=== PATIENT | female | born 1985 | race Caucasian/White ===

== ENCOUNTER 2017-01-20 12:03 | Emergency (ER) | payer SELFPAY ==
[2017-01-20 12:16] VITALS: O2SAT 100
--- NOTE | 2017-01-20 12:31 | C.PDOC ---
History Of Present Illness A 31 year old female with a Hx of anxiety, presents to the ER c/o palpitation and anxiety after taking 2 pills of Zoloft today. Patient reports she started feeling anxious prior to arrival and started taking her anxiety medication. Patient denies chest pain, fever, chills, trauma, vomiting, suicidal or homicidal ideation, or any other complaints Time Seen by Provider: 01/20/17 12:19 Chief Complaint (Nursing): Medical Clearance History Per: Patient History/Exam Limitations: no limitations Onset/Duration Of Symptoms: Hrs Current Symptoms Are (Timing): Still Present Associated Symptoms: denies: Chest Pain Quality Of Symptoms: Rapid Heart Rate Severity: Mild Recent travel outside of the [place]: No Additional History Per: Patient Past Medical History Reviewed: Historical Data, Nursing Documentation, Vital Signs Vital Signs: Last Vital Signs Temp 97.4 F L 01/20/17 13:46 Pulse 92 H 01/20/17 13:46 Resp 18 01/20/17 13:46 BP 136/81 01/20/17 13:46 Pulse Ox 100 01/20/17 14:03 - Medical History PMH: Anxiety Denies: Chronic Kidney Disease - [facility] Procedures NEBULIZER THERAPY (06/28/14) Family History: States: Diabetes, Hypertension - Social History Hx Alcohol Use: No Hx Substance Use: No - Immunization History Hx Tetanus Toxoid Vaccination: Yes Hx Influenza Vaccination: Yes Hx Pneumococcal Vaccination: Yes Review Of Systems Except As Marked, All Systems Reviewed And Found Negative. Constitutional: Negative for: Fever, Chills, Other (Trauma) Cardiovascular: Positive for: Palpitations Gastrointestinal: Negative for: Vomiting Psych: Positive for: Anxiety. Negative for: Suicidal ideation Physical Exam - Physical Exam Appears: Non-toxic, No Acute Distress, Other (Appears anxious) Skin: Warm, Dry Head: Atraumatic, Normacephalic Eye(s): bilateral: Normal Inspection, PERRL Cardiovascular: Rhythm Regular (Tachycardic), No Murmur Respiratory: Normal Breath Sounds, No Rales, No Rhonchi, No Wheezing Neurological/Psych: Oriented x3, Normal Speech, No Other (No focal deficit) ED Course And Treatment - Laboratory Results Result Diagrams: 01/20/17 12:59 01/20/17 12:59 ECG: Interpreted By Me, Viewed By Me ECG Rhythm: Sinus Rhythm, Sinus Tachycardia (100) ECG Interpretation: Abnormal Interpretation Of ECG: qtc 490 Rate From EC O2 Sat by Pulse Oximetry: 100 (RA) Pulse Ox Interpretation: Normal Progress - Re-Evaluation Re-evaluation Note: 01/20/17 14:01 EXAM UNCH PRIOR. VSS. PS HAD 2 PANIC ATTACKS SINCE PRIOR EVAL. AGAIN OFFERED XANAX, PT AGREES W PLAN. DC FU PMD 01/20/17 14:19 EKG #2: NSR@ 75 QTC 457 - Data Reviewed Data Reviewed: Lab, Diagnostic imaging, EKG, Old records - Continuity of Care Discussed patient case with:: Patient, Family-HIPPA compliant Medical Decision Making Medical Decision Making: Impression: 31 y/o c/o palpation and anxiety prior to arrival. Plans: -EKG -IV fluids -Reassess and disposition Disposition Counseled Patient/Family Regarding: Studies Performed, Diagnosis, Need For Followup - Disposition Referrals: YOUR,PMD [Other] Disposition: HOME/ ROUTINE Disposition Time: 14:02 Condition: IMPROVED Instructions: Palpitations (ED), Panic Attack (ED) - Clinical Impression Clinical Impression: Palpitations, Panic attack - Scribe Statement The provider has reviewed the documentation as recorded by the Scribe Nona preston All medical record entries made by the Scribe were at my direction and personally dictated by me. I have reviewed the chart and agree that the record accurately reflects my personal performance of the history, physical exam, medical decision making, and the department course for this patient. I have also personally directed, reviewed, and agree with the discharge instructions and disposition.
[2017-01-20 13:02] LABS: BASO # 0.2 K/uL (0.0-0.2); BASO % 2.9 % (0.0-2.0); EOS # 0.1 K/uL (0.0-0.7); HEMATOCRIT 38.6 % (34.0-47.0); LYMPH # 2.1 K/uL (1.0-4.3); LYMPH % 30.2 % (20.0-40.0); MEAN CELL VOLUME 86.1 fL (81.0-99.0); MEAN CORPUSCULAR HEMOGLOBIN 27.9 pg (27.0-31.0); MEAN CORPUSCULAR HGB CONC 32.4 g/dL (33.0-37.0); MONO # 0.4 K/uL (0.0-0.8); MONO % 5.3 % (0.0-10.0); NRBC % 0.1 % (0.0-2.0); RED CELL DISTRIBUTION WIDTH 14.8 % (11.5-14.5); WHITE BLOOD COUNT 6.9 K/uL (4.8-10.8)
[2017-01-20 13:10] LABS: CHLORIDE 104 mmol/L (98-107); POTASSIUM 3.8 mmol/L (3.6-5.2); SODIUM 142 mmol/L (132-148)
[2017-01-20 13:12] LABS: GFR AFRICAN-AMERICAN > 60
[2017-01-20 13:13] LABS: BLOOD UREA NITROGEN 8 mg/dL (7-17); CALCIUM 8.8 mg/dl (8.6-10.4); CARBON DIOXIDE 20 mmol/L (22-30); GLUCOSE,RANDOM 108 mg/dL (65-105)
--- NOTE | 2017-01-20 13:14 | RAD ---
HISTORY: Palpitations. COMPARISON: 07/02/2014. TECHNIQUE: Chest PA and lateral FINDINGS: LUNGS: No active pulmonary disease. PLEURA: No significant pleural effusion identified. No pneumothorax apparent. CARDIOVASCULAR: Normal. OSSEOUS STRUCTURES: No significant abnormalities. VISUALIZED UPPER ABDOMEN: Normal. OTHER FINDINGS: None. IMPRESSION: No active disease. No significant interval change compared to the prior examination(s).
[2017-01-20 13:47] VITALS: BP 136/81
[2017-01-20 14:20] VITALS: PULSE 72; RESP 14; TEMP 98.6
--- NOTE | 2017-01-23 07:43 | CARD ---
APPROVED REPORT EKG Measurement Heart [id number] <Conclusion> Poor data quality, interpretation may be adversely affected Normal sinus rhythm Normal ECG
--- NOTE | 2017-01-23 07:44 | CARD ---
APPROVED REPORT EKG Measurement Heart [id number] <Conclusion> Normal sinus rhythm Prolonged QT Abnormal ECG
== END 2017-01-20 14:20 | disposition home or self-care (01) ==
LOC: C.ER 12:03
DX: F41.0 Panic disorder [episodic paroxysmal anxiety] (principal); R00.2 Palpitations

== ENCOUNTER 2017-11-20 12:07 | Emergency (ER) | payer OTHER ==
[2017-11-20 12:14] VITALS: BP 131/83; PULSE 86; RESP 18; TEMP 98.2; O2SAT 100
--- NOTE | 2017-11-20 12:50 | C.PDOC ---
History Of Present Illness 32 yo female w/o significant PMHx come in for evaluation of Right head painful mass and Right neck painful swelling gradually developed for past few days. Pt sts, " had hair done week ago". Otherwise, pt denies fever, chills, known trauma or injury, dizziness, ear ache, sore throat, recent illness, weight loss , malaise, denies any other active complaints. Ambulate to ED for evaluation, not in any apparent distress. Time Seen by Provider: 11/20/17 12:32 Chief Complaint (Nursing): Abnormal Skin Integrity History Per: Patient Past Medical History Reviewed: Historical Data, Nursing Documentation, Vital Signs Vital Signs: Last Vital Signs Temp 98.2 F 11/20/17 12:12 Pulse 86 11/20/17 12:12 Resp 18 11/20/17 12:12 BP 131/83 11/20/17 12:12 Pulse Ox 100 11/20/17 13:03 - Medical History PMH: Anxiety Denies: Chronic Kidney Disease Surgical History: No Surg Hx - [facility] Procedures NEBULIZER THERAPY (06/28/14) Family History: States: Diabetes, Hypertension - Social History Hx Tobacco Use: Yes Hx Alcohol Use: No Hx Substance Use: No - Immunization History Hx Tetanus Toxoid Vaccination: Yes Hx Influenza Vaccination: Yes Hx Pneumococcal Vaccination: Yes Review Of Systems Except As Marked, All Systems Reviewed And Found Negative. Constitutional: Negative for: Fever, Chills, Weakness, Malaise, Weight loss Eyes: Negative for: Vision Change ENT: Negative for: Ear Pain, Ear Discharge, Nose Pain, Nose Discharge, Nose Congestion, Mouth Pain, Mouth Swelling, Throat Pain, Throat Swelling Respiratory: Negative for: Cough, Shortness of Breath Musculoskeletal: Positive for: Neck Pain Skin: Positive for: Lesions Neurological: Negative for: Weakness, Numbness, Altered Mental Status, Headache , Dizziness Physical Exam - Physical Exam Appears: Well, Non-toxic, No Acute Distress Skin: Normal Color, Warm, Dry Head: Atraumatic, Normacephalic, Other (Right temporal area small tender mass 1cm diameter, mild erythema, no flactulance.) Eye(s): bilateral: PERRL Ear(s): Bilateral: Normal Nose: No Flaring, No Discharge Oral Mucosa: Moist, No Drooling, No Trismus Tongue: Normal Appearing, No Lesions Lips: Normal Appearing, No Lesions Gingiva: Normal Appearing Throat: No Erythema, No Drooling Neck: Trachea Midline, No Midline Cervical Tenderness, No Paracervical Tenderness, No Step Off Deformity, Supple Lymphatic: Adenopathy (Right anterior cervical, mild tenderness, no erythema, no flactulance.) Respiratory: No Decreased Breath Sounds, No Accessory Muscle Use, No Stridor, No Wheezing Extremity: Normal ROM, No Deformity, No Swelling Neurological/Psych: Oriented x3, Normal Speech ED Course And Treatment O2 Sat by Pulse Oximetry: 100 Pulse Ox Interpretation: Normal Progress Note: On re-evaluation, pt is afebrile, hemodynamicalys table. NOn- toxic. PulsEOx 100% RA. Neck: (+) Right anterior cervical tender lymphodenopathy, no erythema, no flactulance. Supple, (-) meningeals ign. Head : (+) Right temporal scalp cyst , no flactulance. ENT: No acute findings. Lungs: CTA B/L, BS equal B/L. Pt advised on course of ds. ref. to F/U with PMD , ENT In 2-3 days for re-eavl. returbn to ED if any worsening or new changes. Disposition Counseled Patient/Family Regarding: Diagnosis, Need For Followup, Rx Given - Disposition Referrals: Dilan Esposito MD [Staff Provider] - Disposition: HOME/ ROUTINE Disposition Time: 12:51 Condition: STABLE Additional Instructions: Warm compresses to scalp Take medication as prescribed Follow up with PMD, ENT in 2-3 days for evaluation. return to ED if any worsening or new changes. Prescriptions: Doxycycline Hyclate [Doryx] 100 mg PO BID #14 cap Ibuprofen [Motrin Tab] 600 mg PO Q6 #20 tab Instructions: Epidermal Cyst, Soft Tissue Sarcoma, Adult (DC) Forms: [facility] (Malagasy) - Clinical Impression Clinical Impression: Scalp cyst, Lymphadenopathy
== END 2017-11-20 13:05 | disposition home or self-care (01) ==
LOC: C.ER 12:07
DX: L72.8 Other follicular cysts of the skin and subcutaneous tissue (principal); R59.1 Generalized enlarged lymph nodes

== ENCOUNTER 2018-10-31 19:10 | Emergency (ER) | payer MEDICAID, OTHER ==
[2018-10-31 19:11] VITALS: BMI 29.0
[2018-10-31] MEDS ORDERED: Folic Acid 1 MG, Thiamine 100 MG, Multivitamin (MVI) 10 ML in Dextrose 5% In Water 1,00... IV SCH (20:15)
--- NOTE | 2018-10-31 20:18 | C.PDOC ---
History Of Present Illness 33 year old female with Hx of ETOH abuse presents with palpitations and tremulousness x2 hours. She typically drinks 1 bottle of wine a day, last drink was two glasses of wine this morning but stopped because she wishes to quit, sym ptoms then began 2 hours ago. Patient feels anxiety and fear but does not know of what. Denies fever, chills, chest pain, SOB, trauma, or vomiting. PMD: Luke Nelson Time Seen by Provider: 10/31/18 19:52 Chief Complaint (Nursing): Palpitations History Per: Patient History/Exam Limitations: no limitations Onset/Duration Of Symptoms: Hrs Current Symptoms Are (Timing): Still Present Recent travel outside of the [place]: No Past Medical History Reviewed: Historical Data, Nursing Documentation, Vital Signs Vital Signs: Last Vital Signs Temp 98.2 F 10/31/18 19:17 Pulse 120 H 10/31/18 19:17 Resp 16 10/31/18 19:17 BP 125/87 10/31/18 19:17 Pulse Ox 100 10/31/18 19:17 - Medical History PMH: Anemia (as per pt 4 months ago hemglobin low, was on iron pills), Anxiety, Depression, Sleep Apnea (prior to surgery) Denies: Alzheimer's Disease, Arthritis, Asthma, Atrial Fibrillation, Bipolar Disorder, Bronchitis, CAD, Cardia Arrhythmia, CHF, COPD, Crohn's Disease, Dementia, Diabetes, Diverticulitis, Emphysema, Fractures, Gastritis, Gall Bladder Disease, Hepatitis, HIV, HTN, Hypercholesterolemia, Hyperthyroidism, Hypothyroidism, Kidney Stones, Migraine, Mitral Valve Prolapse, Multiple Sclerosis, Osteoporosis, Pancreatitis, Paranoia, Parkinson's Disease, Peripheral Edema, Pneumonia, Post Traumatic Stress Disorder, Pulmonary Embolism, Chronic Kidney Disease, Rheumatoid Arthritis, Schizophrenia, Seizures, Sickle Cell Disease, Sexually Transmitted Disease, TIA Surgical History: Denies: Appendectomy, CABG, Carotid Endarterectomy, Cholecystectomy, Coronary Stent, Pacemaker, Tonsillectomy - [facility] Procedures (06/23/18) INTRODUCTION OF SERUM/TOX/VACCINE INTO MUSCLE, PERC APPROACH (06/23/18) NEBULIZER THERAPY (06/28/14) Family History: States: Diabetes, Hypertension - Social History Hx Tobacco Use: Yes Hx Alcohol Use: Yes Hx Substance Use: No - Immunization History Hx Tetanus Toxoid Vaccination: Yes Hx Influenza Vaccination: Yes Hx Pneumococcal Vaccination: Yes Review Of Systems Except As Marked, All Systems Reviewed And Found Negative. Constitutional: Negative for: Fever Cardiovascular: Positive for: Palpitations. Negative for: Chest Pain Respiratory: Negative for: Shortness of Breath Neurological: Positive for: Other (Tremulousness) Physical Exam - Physical Exam Additional Physical Exam Comments: Constitutional: No acute distress. Head: Normocephalic. Atraumatic. Eyes: PERRL. EOMI. ENT: Moist mucous membranes. Neck: Supple. Cardiovascular: Tachycardic. Chest: No tenderness. Respiratory: Clear to auscultation bilaterally. GI: Soft. Nontender. Nondistended. Back: No CVA tenderness. Musculoskeletal: No tenderness or swelling of extremities. Skin: No rash. Neurologic: Tremor. Tongue fasciculation. ED Course And Treatment - Laboratory Results Result Diagrams: 10/31/18 20:25 10/31/18 20:25 O2 Sat by Pulse Oximetry: 100 Medical Decision Making Medical Decision Making: Tremors resolved. Tachycardia resolved. Called detox, no beds available. Patient feels comfortable to go home and continue to call detox for bed availability. I nstructed to return to ED for worsening tremor, dyspnea, pain, vomiting, or any other problem. Disposition - Disposition Disposition: HOME/ ROUTINE Disposition Time: 22:09 Condition: STABLE Instructions: Alcohol Withdrawal Forms: [facility] (Romanian) - Clinical Impression Clinical Impression: Alcohol withdrawal - Scribe Statement The provider has reviewed the documentation as recorded by the Scribe Jatinder Falcon All medical record entries made by the Scribe were at my direction and personally dictated by me. I have reviewed the chart and agree that the record accurately reflects my personal performance of the history, physical exam, [facility] decision making, and the department course for this patient. I have also personally directed, reviewed, and agree with the discharge instructions and disposition.
[2018-10-31 20:30] LABS: BASO # 0.1 K/uL (0.0-0.2); EOS % 0.7 % (0.0-4.0); HEMOGLOBIN 11.6 g/dL (11.0-16.0); LYMPH # 1.1 K/uL (1.0-4.3); LYMPH % 17.3 % (20.0-40.0); MEAN CELL VOLUME 91.2 fL (81.0-99.0); MEAN CORPUSCULAR HEMOGLOBIN 29.1 pg (27.0-31.0); MEAN CORPUSCULAR HGB CONC 31.9 g/dL (33.0-37.0); MEAN PLATELET VOLUME 6.6 fL (7.2-11.7); MONO # 0.5 K/uL (0.0-0.8); NEUT # 4.9 K/uL (1.8-7.0); RBC 3.99 Mil/uL (3.80-5.20); RED CELL DISTRIBUTION WIDTH 24.5 % (11.5-14.5); WHITE BLOOD COUNT 6.6 K/uL (4.8-10.8)
[2018-10-31 20:43] LABS: ALB/GLOB RATIO 1.8 (1.0-2.1); ALT/SGPT 42 U/L (9-52); AST/SGOT 49 U/L (14-36); BLOOD UREA NITROGEN 8 mg/dL (7-17); CALCIUM 9.6 mg/dl (8.6-10.4); GFR NON-AFRICAN AMERICAN > 60; LIPASE 221 U/L (23-300)
[2018-10-31 22:54] VITALS: BP 113/74; PULSE 77; RESP 20; TEMP 99; O2SAT 95
--- NOTE | 2018-11-01 08:12 | RAD ---
HISTORY: withdrawal COMPARISON: Chest x-ray performed 01/20/17 TECHNIQUE: Chest, one view. FINDINGS: Emanation limited by habitus and hypoinflation. LUNGS: No focal consolidation. Please note that chest x-ray has limited sensitivity for the detection of pulmonary masses. PLEURA: No significant pleural effusion identified. No definite pneumothorax . CARDIOVASCULAR: Heart size appears within normal limits. No significant atherosclerotic calcification present. OSSEOUS STRUCTURES: No acute osseous abnormality identified. VISUALIZED UPPER ABDOMEN: Elevation of the right hemidiaphragm. OTHER FINDINGS: None. IMPRESSION: No focal consolidation.
--- NOTE | 2018-11-01 11:03 | CARD ---
APPROVED REPORT Date of service: 10/31/2018 EKG Measurement Heart [id number] <Conclusion> Normal sinus rhythm Prolonged QT Abnormal ECG
== END 2018-10-31 22:54 | disposition home or self-care (01) ==
LOC: C.ER 19:10
DX: F10.239 Alcohol dependence with withdrawal, unspecified (principal); Z72.0 Tobacco use
CPT/HCPCS: 71045; 80053; 83690; 83735; 84100; 85025; 93005; 96365; 96366; 96375; 99284; G0480; J2060; J2405; J3411; J7070

== ENCOUNTER 2018-11-08 08:06 | Inpatient (IN) | payer MEDICAID, OTHER ==
[2018-11-08 08:06] VITALS: BMI 29.0
[2018-11-08] MEDS ORDERED: Sodium Chloride 0.9% 1,000 ML IV ONE (08:36)
--- NOTE | 2018-11-08 09:11 | C.PDOC ---
History Of Present Illness 33 year old female patient with history of depression and alcohol abuse presents to the emergency complaining of chest discomfort this morning. Associated symptoms includes anxiety, jittery and feeling upset. Patient admits she was f eeling depressed and drank 1 and half bottle of wine last night to deal with her problems. Patient denies suicidal ideation, homicidal ideation, shortness of breath, light headedness and dizziness. Time Seen by Provider: 11/08/18 08:30 Chief Complaint (Nursing): Chest Pain History Per: Patient History/Exam Limitations: no limitations Onset/Duration Of Symptoms: Hrs Current Symptoms Are (Timing): Still Present Past Medical History Reviewed: Historical Data, Nursing Documentation, Vital Signs Vital Signs: Last Vital Signs Temp 98.0 F 11/08/18 08:23 Pulse 112 H 11/08/18 08:23 Resp 23 11/08/18 08:23 BP 147/96 H 11/08/18 08:23 Pulse Ox 100 11/08/18 08:23 - Medical History PMH: Anemia, Anxiety, Depression, Sleep Apnea (prior to surgery) - [facility] Procedures (06/23/18) INTRODUCTION OF SERUM/TOX/VACCINE INTO MUSCLE, PERC APPROACH (06/23/18) NEBULIZER THERAPY (06/28/14) Family History: States: Diabetes, Hypertension - Social History Hx Tobacco Use: Yes Hx Alcohol Use: Yes Hx Substance Use: No - Immunization History Hx Tetanus Toxoid Vaccination: Yes Hx Influenza Vaccination: Yes Hx Pneumococcal Vaccination: No Review Of Systems Constitutional: Positive for: Other (jittery) Cardiovascular: Positive for: Other (chest discomfort). Negative for: Light Headedness Respiratory: Negative for: Shortness of Breath Neurological: Negative for: Dizziness Psych: Positive for: Anxiety, Depression. Negative for: Suicidal ideation, Other (homicidal ideation ) Physical Exam - Physical Exam Appears: Non-toxic, Other (anxious ) Skin: Warm, Dry Head: Atraumatic, Normacephalic Eye(s): bilateral: Normal Inspection Nose: Normal Oral Mucosa: Moist Throat: Normal Cardiovascular: Rhythm Regular Respiratory: Normal Breath Sounds, No Rales, No Rhonchi, No Wheezing Gastrointestinal/Abdominal: Soft, No Tenderness Back: No CVA Tenderness Extremity: Normal ROM (x4) Extremity: Bilateral: Atraumatic, Normal Color And Temperature Neurological/Psych: Oriented x3, Normal Speech, Normal Cognition, Normal Motor, Normal Sensation ED Course And Treatment - Laboratory Results Result Diagrams: 11/08/18 09:17 11/08/18 09:17 O2 Sat by Pulse Oximetry: 100 (RA) Pulse Ox Interpretation: Normal Medical Decision Making Medical Decision Making: Plans: -- chem labs -- blood work -- EKG -- IV fluids -- ativan -- Crisis consult All labs reviewed and patient medically cleared. Stable for psych admission. Contact odd bundle worker. 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 - Scribe Statement The provider has reviewed the documentation as recorded by the Eitanibrishi Santos Do All medical record entries made by the Scribe were at my direction and personally dictated by me. I have reviewed the chart and agree that the record accurately reflects my personal performance of the history, physical exam, medical decision making, and the department course for this patient. I have also personally directed, reviewed, and agree with the discharge instructions and disposition. Decision To Admit - Pt Status Changed To: Hospital Disposition Of: Inpatient - Admit Certification Admit to Inpatient:: After my assessment, the patient will require hospitalization for at least two midnights. This is because of the severity of symptoms shown, intensity of services needed, and/or the medical risk in this patient being treated as an outpatient. - InPatient: Physician Admission Certification: I certify that this patient requires 2 or more midnights of care for the following reason:: Pt accepted for inpatient - . Bed Request Type: Psychiatry Admitting Physician: Gilma Richard Patient Diagnosis: MDD (major depressive disorder), severe
[2018-11-08 09:24] LABS: BASO # 0.1 K/uL (0.0-0.2); BASO % 1.5 % (0.0-2.0); EOS # 0.1 K/uL (0.0-0.7); EOS % 1.2 % (0.0-4.0); HEMOGLOBIN 11.4 g/dL (11.0-16.0); LYMPH % 17.8 % (20.0-40.0); MEAN CELL VOLUME 91.9 fL (81.0-99.0); MEAN CORPUSCULAR HEMOGLOBIN 30.4 pg (27.0-31.0); MEAN CORPUSCULAR HGB CONC 33.1 g/dL (33.0-37.0); MEAN PLATELET VOLUME 6.6 fL (7.2-11.7); MONO # 0.3 K/uL (0.0-0.8); MONO % 5.4 % (0.0-10.0); NEUT % 74.1 % (50.0-75.0); RBC 3.74 Mil/uL (3.80-5.20); RED CELL DISTRIBUTION WIDTH 24.5 % (11.5-14.5); WHITE BLOOD COUNT 5.4 K/uL (4.8-10.8)
[2018-11-08] MEDS ORDERED: Sodium Chloride 0.9% 1,000 ML ONE (09:26)
[2018-11-08 09:29] LABS: HCG,QUALITATIVE URINE NEGATIVE (NEGATIVE)
[2018-11-08 09:33] LABS: SQUAMOUS EPITHIAL 1 /hpf (0-5); URINE BILIRUBIN NEGATIVE (NEGATIVE); URINE BLOOD NEGATIVE (NEGATIVE); URINE CLARITY Hazy (Clear); URINE COLOR Amber (YELLOW); URINE GLUCOSE (UA) NORMAL (Normal); URINE LEUKOCYTE ESTERASE NEG Leu/uL (Negative); URINE PROTEIN 2+ mg/dL (NEGATIVE); URINE UROBILINOGEN NORMAL mg/dL (0.2-1.0)
[2018-11-08 09:37] LABS: ALB/GLOB RATIO 1.9 (1.0-2.1); ALBUMIN 4.7 g/dL (3.5-5.0); ALT/SGPT 33 U/L (9-52); AST/SGOT 57 U/L (14-36); BLOOD UREA NITROGEN 11 mg/dL (7-17); CALCIUM 8.1 mg/dl (8.6-10.4); GFR NON-AFRICAN AMERICAN > 60
[2018-11-08 09:56] LABS: BARBITURATES, UR NEGATIVE (NEGATIVE); OPIATES, UR NEGATIVE (NEGATIVE); PHENCYCLIDINE, UR NEGATIVE (NEGATIVE)
[2018-11-08 10:19] LABS: BENZODIAZEPINES, UR POSITIVE (NEGATIVE)
--- NOTE | 2018-11-08 12:53 | PCM.BM ---
<Kiera Coffman - Last Filed: 11/08/18 12:50> Treatment Plan Problems - Problems identified on initial assessmt Self care Deficit Date Initiated: 11/08/18 Time Initiated: 12:51 Assessment reference: NA Status: Active Social Isolation Date Initiated: 11/08/18 Time Initiated: 12:51 Assessment reference: NA Status: Active Medication Nonadherence Date Initiated: 11/08/18 Time Initiated: 12:52 Assessment reference: NA Status: Active Treatment assets and liabiliti Patient Assests: cooperative, educated, ADL independent, physically healthy, negotiates basic needs, cognitively intact Patient Liabilities: live alone (Lives with Mother and her children), substance abuse (Positive for Benzo, Bal 127) - Milieu Protocol Maintain good personal hygiene: daily Encourage regular showers, daily Remind patient to perform daily oral care, daily Assist patient to perform ADL's (Self cre ) Conduct patient checks and document Observation sheet: Q15 minutes (Safety ) Maintain personal safety: every shift Educate patient to report safety concerns to staff, every shift Monitor environment for contraband/sharps Medication safety: Monitor for expected outcome, potential side effects: every shift, Assess barriers to learning: every shift, Assess readiness for medication education: every shift <Gilma Richard - Last Filed: 11/11/18 11:02> - Diagnosis (1) MDD (major depressive disorder), severe Status: Acute Interventions: 11/11/18 11:02 * Assess/adjust medications daily and /or as needed * See patient on an individual basis 7x/week to assess symptoms of depression * Monitor for side effects & effectiveness of medications * (2) Alcohol use disorder Status: Acute Interventions: 11/11/18 11:02 * Assess 7x/week regarding severity of withdrawal * Educate regarding risks, benefits, side effects and alternatives of medications * Use Motivational Interviewing for abstinence * Use CBT for relapse prevention * Medication management for withdrawal symptoms * Encourage medication assisted treatment * <Mely Jeffrey - Last Filed: 11/11/18 11:56> Family Contact Family involvement: Patient does not wish Family/SO involvement Family contact: Patient declines to allow family contact at present - Goals for Treatment Patient goals for treatment: "I [facility] to go to [facility]." Discharge/Continuing Care - Education Needs Education Needs: Patient Medication, Patient Diagnosis/Disease Process, Patient Coping Skills, Patient Community resources - Discharge Discharge Criteria: Free of Suicidal thoughts, Normal sleep pattern, Ability to care for self, No longer exhibiting s/s of withdrawal, Reduction of target symptoms Discharge to:: Home, With Family - Treatment Team Participation Discussed with Family/SO: No Was Patient/Family/SO present at Treatment Team Meeting: Yes
--- NOTE | 2018-11-08 18:10 | PCM.PSYCH ---
Initial Psychiatric Evaluation - Initial Psychiatric Evaluation Type of Admission: Voluntary Legal Status: Capacity Chief Complaint (in patient's own words): I was feeling depressed and suicidal History of Present Illness and Precipitating Events: Patient is a 33 year female who came to the hospital because of depressed mood and suicidal ideation. Patient reports history of one inpatient psychiatric hospitalization at [facility] 2 months ago. However she denies any history of follow-up with any psychiatrist. Patient reports history of drinking a bottle of wine daily since last week. She reports of shortness of breath, chest pain and feeling anxious for about a week, yesterday she started feeling down depressed and suicidal, so today she came to the hospital to get help. She reports depressed mood, feelings of hopelessness and helplessness and worthlessness. Patient reports her stressors including impending divorce, family issues and unemployment. Patient stated that she's going through a depression and in order to forget anything and everything that stressors her out she drinks. She reports poor sleep and poor appetite. She reports withdrawal symptoms from drinking including shakes, anxiety, headaches, sweating and abdominal pain. However she denies any auditory hallucinations or any paranoia. She denies any other substance abuse. Past medical history None reported Current Medications: Active Medications Generic Name Dose Route Start Last Admin Trade Name Freq PRN Reason Stop Dose Admin Lorazepam 0.5 mg 11/08/18 17:06 11/08/18 18:04 Ativan PO 0.5 mg Q4 PRN Administration Symptoms of alcohol withdrawl Pneumococcal Polyvalent Vaccine 0.5 ml 11/11/18 10:00 Pneumovax 23 Vaccine IM 11/11/18 10:01 .ONCE ONE Past Psychiatric History - Past Psychiatric History Previous Treatment History: None Pertinent Medical Hx (Current Medical&Sleep Prob, Allergies): Allergies Allergy/AdvReac Type Severity Reaction Status Date / Time No Known Allergies Allergy Verified 11/08/18 08:30 No Known Home Med 11/08/18 Review of Systems - Review of Systems All systems: reviewed and no additional remarkable complaints except - Psychiatric Psychiatric: Anxiety, Irritability, Suicidal Ideation. absent: Hallucinations Mental Status Examination - Personal Presentation Personal Presentation: Looks stated age - Affect Affect: Constricted, Depressed - Motor Activity Motor Activity: Calm - Reliability in Providing Information Reliability in Providing Information: Fair - Speech Speech: Organized - Mood Mood: Depressed, Anxious - Formal Thought Process Formal Thought Process: No Impairment - Obsessions/Compulsions Obsessions: No Compulsions: No - Cognitive Functions Orientation: Person, Place, Situation, Time Sensorium: Alert Attention/Concentration: Attentive Abstract Thinking: Petroleum Estimate of Intelligence: Below average Judgement: Imparied, as evidence by: Poor judgement, Imparied, as evidence by: Lack of insight into illness - Risk Risk: Suicidal, Withdrawal, Diminished functioning - Strength & Assets Inventory Strength & Assets Inventory: Family support DSM 5 DX - DSM 5 DSM 5 Diagnosis: Major depressive disorder single episode severe without psychotic features Alcohol use disorder severe Alcohol withdrawal - Recommended/Plan of Treatment Treatment Recommendations and Plan of Treatment: Major depressive 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
[2018-11-09 06:43] VITALS: O2SAT 95
[2018-11-09] MEDS: Multiple Vitamins Tab PO SCH (09:33)
[2018-11-10 07:59] VITALS: TEMP 98.3
[2018-11-10] MEDS: Multiple Vitamins Tab PO SCH (09:01)
[2018-11-11] MEDS: Multiple Vitamins Tab PO SCH (09:38)
[2018-11-11] MEDS ORDERED: Pneumococcal 23-Valent Vaccine IM ONE (10:00)
--- NOTE | 2018-11-11 10:48 | PCM.PYCHPN ---
Psychiatric Progress Note - Psychiatric Progress Note Patient seen today, length of contact: 15 min Patient Chief Complaint: I m feeling little better.' Problems Identified/Issues Discussed: Patient was seen and evaluated, chart reviewed and discussed with the staff. Patient reports some improvement in her depressed mood and reports improvement in the feelings of hopelessness and helplessness. She remained isolated and withdrawn. However she has started coming out of the room. She reports some improvement in the withdrawal symptoms. She is taking medication but denies any side effects Supportive therapy was given. Medication Change: Yes Medical Record Reviewed: Yes Mental Status Examination - Cognitive Function Orientation: Person, Place, Situation, Time Memory: Intact Attention: WNL Concentration: Poor Association: WNL Fund of Knowledge: Poor - Mood Mood: Depressed, Anxious - Affect Affect: Constricted, Depressed - Speech Speech: Soft - Formal Thought Process Formal Thought Process: No Impairment - Suicidal Ideation Suicidal Ideation: No - Homicidal Ideation Homicidal Ideation: No Goal/Treatment Plan - Goal/Treatment Plan Need for Continued Stay: Remain at risks for inpatient hospitalization Progress Toward Problem(s) and Goals/Treatment Plan: Major depressive 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
[2018-11-12 06:41] VITALS: BP 105/70; PULSE 58; RESP 16
[2018-11-12] MEDS: Multiple Vitamins Tab PO SCH (10:17)
--- NOTE | 2018-11-12 10:49 | PCM.PYCHDC ---
Mental Status Examination - Mental Status Examination Orientation: Person, Place, Situation, Time Memory: Intact Mood: Neutral Affect: Constricted Speech: Soft Attention: WNL Concentration: WNL Association: WNL Fund of Knowledge: WNL Formal Thought Process: No Impairment Description of patient's judgement and insight: good, fair Psychotic Thoughts and Behaviors: denies any AVH Suicidal Ideation: No Current Homicidal Ideation?: No Discharge Summary - Discharge Note Reason for Hospitalization: Patient is a 33 year female who came to the hospital because of depressed mood and suicidal ideation. Patient reports history of one inpatient psychiatric hospitalization at [facility] 2 months ago. However she denies any history of follow-up with any psychiatrist. Patient reports history of drinking a bottle of wine daily since last week. She reports of shortness of breath, chest pain and feeling anxious for about a week, yesterday she started feeling down depressed and suicidal, so today she came to the hospital to get help. She reports depressed mood, feelings of hopelessness and helplessness and worthlessness. Patient reports her stressors including impending divorce, family issues and unemployment. Patient stated that she's going through a depression and in order to forget anything and everything that stressors her out she drinks. She reports poor sleep and poor appetite. She reports withdrawal symptoms from drinking including shakes, anxiety, headaches, sweating and abdominal pain. However she denies any auditory hallucinations or any paranoia. She denies any other substance abuse. Consultations:: List each consultation separately and include: 1. Reason for request. 2. Findings. 3. Follow-up Summary of Hospital Course include:: 1. Description of specific treatment plan utilized for patients during their course of treatmen. 2. Summarize the time- course for resolution of acute symptoms and/or regressed behaviors. 3. Describe issues identified and worked on during hospitalization. 4. Describe medication utilized. 5. Describe medical problems identified and treated. 6. Reassessment of suicide risk Summary of Hospital Course: Patient is a 33 year female who came to the hospital because of depressed mood and suicidal ideation. Patient reports history of one inpatient psychiatric hospitalization at [facility] 2 months ago. However she denies any history of follow-up with any psychiatrist. Patient reports history of drinking a bottle of wine daily since last week. She reports of shortness of breath, chest pain and feeling anxious for about a week, yesterday she started feeling down depressed and suicidal, so today she came to the hospital to get help. She reports depressed mood, feelings of hopelessness and helplessness and worthlessness. Patient reports her stressors including impending divorce, family issues and unemployment. Patient stated that she's going through a depression and in order to forget anything and everything that stressors her out she drinks. She reports poor sleep and poor appetite. She reports withdrawal symptoms from drinking including shakes, anxiety, headaches, sweating and abdominal pain. However she denies any auditory hallucinations or any paranoia. She denies any other substance abuse. 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 Prescriptions/Medication Reconciliation: Sertraline [Zoloft] 100 mg PO DAILY #30 tab traZODone [Desyrel] 50 mg PO HS PRN #30 tab PRN Reason: Insomnia - Smoking Cessation Smoking Cessation Medication prescribed: No - Antipsychotic Medications Pt discharged on 2 or more routine antipsychotic medications: No
== END 2018-11-12 12:00 | disposition home or self-care (01) | DRG 751 ==
LOC: C.ER 08:06 → C.5E 11:54
PROVIDERS: ADMIT Psychiatry & Neurology Psychiatry; ATTEND Psychiatry & Neurology Psychiatry
DX: F32.2 Major depressive disorder, single episode, severe without psychotic features (principal); E11.9 Type 2 diabetes mellitus without complications; I10 Essential (primary) hypertension; F41.9 Anxiety disorder, unspecified; G47.00 Insomnia, unspecified; G47.30 Sleep apnea, unspecified; Z87.891 Personal history of nicotine dependence; F10.230 Alcohol dependence with withdrawal, uncomplicated; Y90.6 Blood alcohol level of 120-199 mg/100 ml